=== PATIENT | male | born 1960 | race Caucasian/White ===

== ENCOUNTER 2016-08-30 18:28 | Emergency (ER) | payer OTHER ==
[~2016-08-30] VITALS: Ht 177.8 cm; Wt 88.9 kg
[~2016-08-30 18:28] MED LIST: BACTRIM DS 8001 TAB PO; BACTROBAN22 GM TOP; BUSPIRONE HCL5 M1 PO; ESCITALOPRAM10 MG PO; FOLIC ACID1 M1 PO; GABAPENTIN300 MG PO; KEFLEX500 MG PO; PRAVASTATIN40 MG PO; TYLENOL500 MG PO; Theragran Vitamins PO; VITAMIN B-1100 MG PO
--- NOTE | 2016-08-30 19:03 | ED PSYCHIATRIC COMPLAINT ---
History of Present Illness General Chief Complaint: ETOH/Drug Related Complaint Stated Complaint: ETOH Source: patient Exam Limitations: intoxication Vital Signs & Intake/Output Vital Signs & Intake/Output Vital Signs Date Time Temp Pulse Resp B/P B/P Pulse O2 O2 Flow FiO2 Mean Ox Delivery Rate 08/31 0838 98.2 98 20 138/77 95 Room Air 08/31 0638 99.0 88 16 121/71 08/31 0625 99.0 88 16 121/71 95 08/31 0440 98.0 87 18 105/59 08/31 0436 98.0 87 18 105/59 95 Room Air 08/31 0240 98.0 77 17 120/76 08/31 0240 98.0 77 17 120/76 95 Room Air 08/31 0040 98.1 74 16 111/63 08/31 0040 98.1 74 16 111/63 94 Room Air 08/30 2240 98.0 77 16 102/56 94 Room Air 08/30 2047 97.8 77 20 114/67 94 Room Air 08/30 1902 98 Room Air 08/30 1833 97.9 83 16 136/80 94 Room Air ED Intake and Output 08/31 0000 08/30 1200 Intake Total Output Total Balance Patient 196 lb Weight Weight Reported by Patient Measurement Method Allergies Coded Allergies: NO KNOWN ALLERGIES (08/11/15) Reconcile Medications Acetaminophen (Tylenol) 500 MG TAB 500 MG PO Q8P PRN PAIN Buspirone HCl 5 MG TABLET 1 TAB PO BID anxiety Escitalopram Oxalate 10 MG TAB 2 TAB PO DAILY MENTAL HEALTH Folic Acid 1 MG TABLET 1 TAB PO DAILY supplement Gabapentin 300 MG CAP 2 TAB PO Q6-PRN PRN ANXIETY Mupirocin (Bactroban) 22 GM OINT...G. 1 YEYO TOP TID Skin infection apply to affected area(s) Pravastatin Sodium (Pravastatin) 40 MG TAB 1 TAB PO QPM CHOLESTEROL (Reported ) [Theragran Vitamins] 1 TAB PO DAILY supplement Thiamine HCl (Vitamin B-1) 100 MG TABLET 1 TAB PO DAILY supplement Triage Note: PT STATES HE HAS BEEN DRINKING FOR THE PAST FEW DAYS. PT ADMITS TO DRINKING ANNABELLA BEEM UNSURE OF AMOUNT. PT STATES HE AND HIS ARE GETTING A DIVORCE. PT WAS SOBER FOR 15 YEARS BUT THE LAST YEAR HE HAS HAD TROUBLE STAYING SOBER. PT DENIES DRUG USE. PT STATES HE IS SUICIDAL DENIES HI Triage Nurses Notes Reviewed? yes HPI: Patient presents for evaluation of alcohol intoxication and suicide ideation. Patient states he was sober for 15 years until he began divorce proceedings with his . Patient states he had a court date yesterday for the divorce. He has been drinking heavily over the past few days. (ISAAK MERA,CHANTALE Alberto) Past History Travel History Traveled to [place] past 21 day No Medical History Any Pertinent Medical History? 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 FATHER, ; Cause: Alcoholism /alcohol abuse. Hx Contributory? No (ISAAK MERA,CHANTALE Alberto) Review of Systems Review of Systems Constitutional: Reports: no symptoms. EENTM: Reports: no symptoms. Respiratory: Reports: no symptoms. Cardiovascular: Reports: no symptoms. GI: Reports: no symptoms. Genitourinary: Reports: no symptoms. Musculoskeletal: Reports: no symptoms. Skin: Reports: no symptoms. Neurological/Psychological: Reports: no symptoms. Hematologic/Endocrine: Reports: no symptoms. Immunologic/Allergic: Reports: no symptoms. All Other Systems: Reviewed and Negative (ISAAK MERA,CHANTALE Alberto) Physical Exam Physical Exam General Appearance: see below Neurological/Psychiatric: see below Comments: Exam limited secondary to the patient's threatening behavior and aggressive demeanor General: Alert, belligerent and threatening, EtOH-like odor Head: Normocephalic, atraumatic Eyes: Normal inspection, no nystagmus, EOMI Ears: Normal inspection Nose: Normal inspection Throat: Moist mucosa Neck: Supple, no goiter Lungs: No apparent respiratory distress Abdomen: Soft nontender nondistended, normal bowel sounds Chest: Nontender Extremities: Normal range of motion grossly, mild tremors present, no cyanosis clubbing or edema of the upper extremities Neurologic: cranial nerves II through XII grossly intact, speech clear, gait normal Psychiatric: No apparent delusions or hallucinations, no pressured speech or thought blocking, prone to agitation and anger SAD PERSONS Done? deferred to crisis (ISAAK MERA,CHANTALE Alberto) Progress Differential Diagnosis: alcohol intoxication, depression Plan of Care: Orders Procedure Date/time Status Regular Diet 08/31 B Active ED CRISIS PSYCH CONSULT 08/31 0925 Active URINE DRUG SCREEN FOR ER ONLY 08/31 0742 Complete Continuous Observation Monitor 08/31 0700 Active Continuous Observation Monitor 08/31 0300 Active Continuous Observation Monitor 08/30 2300 Active ETHANOL 08/30 1956 Complete COMPREHENSIVE METABOLIC PANEL 08/30 1956 Complete CBC WITHOUT DIFFERENTIAL 08/30 1956 Complete Continuous Observation Monitor 08/30 1900 Active Restraint- Behavioral (Order) 08/30 1850 Active Laboratory Tests 08/31/16 0740: Urine Opiates Screen < 100.00, Methadone Screen 51, Barbiturate Screen < 60, Ur Phencyclidine Scrn < 6.00, Amphetamines Screen < 100, U Benzodiazepines Scrn < 85, Urine Cocaine Screen < 50, Urine Cannabis Screen < 5.00 08/30/162035: Anion Gap 19 H, Estimated GFR > 60, BUN/Creatinine Ratio 21.4, Glucose 78, Calcium 8.5, Total Bilirubin 0.8, AST 38, ALT 50, Alkaline Phosphatase 57, Total Protein 7.1, Albumin 4.2, Globulin 2.9, Albumin/Globulin Ratio 1.4, CBC w Diff NO MAN DIFF REQ, RBC 5.19, MCV 88.3, MCH 30.0, RDW 13.6, MPV 7.0 L, Gran % 74.3 , Lymphocytes % 20.9, Monocytes % 3.6, Eosinophils % 0.6, Basophils % 0.6, Absolute Granulocytes 6.5, Absolute Lymphocytes 1.8, Absolute Monocytes 0.3, Absolute Eosinophils 0.1, Absolute Basophils 0.1, PUBS MCHC 33.9, Serum Alcohol 297.0 08/30/161956: Methadone Screen Cancelled, Barbiturate Screen Cancelled, Ur Phencyclidine Scrn Cancelled, Amphetamines Screen Cancelled, U Benzodiazepines Scrn Cancelled, Urine Cocaine Screen Cancelled, Urine Cannabis Screen Cancelled 7:20 AM Patient signed out to me by Dr. Eng. Pending crisis evaluation. 08/31/2016 11:03:30 AM Patient seen and cleared for discharge by Jude from psychiatry. Patient denies ever feeling suicidal and states that he does not remember making the comment. He will follow-up with IOP on Saturday. (CESIA WU MD) Comments: 08/30/2016 7:25:59 PM patient escalated rapidly into an angry confrontation with the security officers as they tried to place him in his room and prepare him for evaluation. He began screaming obscenities and specifically threatened one of the security officers with bodily harm. He would not respond to verbal redirection. At that point he was placed in 4. restraints and medicated with Haldol Ativan and Benadryl. 08/30/2016 7:31:41 PM patient signed out to Dr. Eng. (ISAAK MERA,CHANTALE Alberto) Departure Departure Condition: Stable Clinical Impression Primary Impression: Alcohol intoxication Qualifiers: Complication of substance-induced condition: with unspecified complication Qualified Code: F10.129 - Alcohol abuse with intoxication, unspecified Secondary Impressions: Depression Qualifiers: Depression Type: unspecified Qualified Code: F32.9 - Major depressive disorder, single episode, unspecified Outbursts of anger Poor impulse control Referrals: FAISAL MERA,MARNIE Spencer (PCP/Family) Departure Forms: Customer Survey General Discharge Information (ISAAK MERA,CHANTALE Alberto) Departure Time of Disposition: 3 Disposition: HOME OR SELF CARE Additional Instructions: Follow-up with IOP on Saturday. Return for any changing or worsening symptoms. (CESIA WU MD)
[2016-08-30 20:55] LABS: ABSOLUTE BASOPHIL COUNT 0.1 /CUMM (0.0-0.2); ABSOLUTE EOSINOPHIL COUNT 0.1 /CUMM (0.0-0.7); ABSOLUTE GRANULOCYTE CT 6.5 /CUMM (1.4-6.5); ABSOLUTE LYMPH COUNT 1.8 /CUMM (1.2-3.4); ABSOLUTE MONOCYTE COUNT 0.3 /CUMM (0.10-0.60); BASOPHIL % 0.6 % (0.0-2.0); EOSINOPHIL % 0.6 % (0-5); GRANULOCYTE % 74.3 % (42.2-75.2); HEMATOCRIT 45.9 % (42-52); MEAN CORPUSCULAR HGB CONC 33.9 G/DL (33.0-37.0); MEAN CORPUSCULAR VOLUME 88.3 FL (80.0-94.0); PLATELET COUNT 290 /CUMM (130-400); RBC DISTRIBUTION WIDTH 13.6 % (11.5-14.5); RED BLOOD CELL CT 5.19 /CUMM (4.70-6.10); WHITE BLOOD CELL COUNT 8.8 /CUMM (4.8-10.8)
[2016-08-31 11:16] VITALS: BP 155/87
== END 2016-08-31 11:28 ==
LOC: ERH 18:28
PROVIDERS: Emergency Medicine
DX: F10.129 Alcohol abuse with intoxication, unspecified (principal); F32.9 Major depressive disorder, single episode, unspecified; R45.4 Irritability and anger; R45.87 Impulsiveness
CPT/HCPCS: 80307; 96372; G0463; G0480; J1200; J1630

== ENCOUNTER 2017-09-17 18:07 | Emergency (ER) | payer OTHER ==
[~2017-09-17] VITALS: Ht 175.3 cm; Wt 77.1 kg
[2017-09-17 18:57] LABS: ABSOLUTE BASOPHIL COUNT 0.1 /CUMM (0.0-0.2); ABSOLUTE EOSINOPHIL COUNT 0.1 /CUMM (0.0-0.7); ABSOLUTE GRANULOCYTE CT 7.3 /CUMM (1.4-6.5); ABSOLUTE LYMPH COUNT 3.1 /CUMM (1.2-3.4); ABSOLUTE MONOCYTE COUNT 0.7 /CUMM (0.10-0.60); BASOPHIL % 0.6 % (0.0-2.0); EOSINOPHIL % 0.5 % (0-5); GRANULOCYTE % 64.6 % (42.2-75.2); HEMATOCRIT 47.9 % (42-52); MEAN CORPUSCULAR HGB 30.5 PG (27.0-31.0); MEAN CORPUSCULAR HGB CONC 33.7 G/DL (33.0-37.0); MEAN CORPUSCULAR VOLUME 90.6 FL (80.0-94.0); MEAN PLATELET VOLUME 6.7 FL (7.4-10.4); PLATELET COUNT 333 /CUMM (130-400); RBC DISTRIBUTION WIDTH 14.2 % (11.5-14.5); WHITE BLOOD CELL COUNT 11.2 /CUMM (4.8-10.8)
--- NOTE | 2017-09-17 21:19 | ED GENERAL ADULT ---
See Addendum History of Present Illness General Chief Complaint: ETOH/Drug Related Complaint Stated Complaint: PT IS HERE FOR DETOX FOR ALOCHOL Source: patient Exam Limitations: intoxication Vital Signs & Intake/Output Vital Signs & Intake/Output Vital Signs Date Time Temp Pulse Resp B/P B/P Pulse O2 O2 Flow FiO2 Mean Ox Delivery Rate 09/189 98.1 92 18 107/65 98 / 0415 98.1 92 18 107/65 / 0211 97.1 87 18 136/69 / 0203 97.1 87 18 136/69 97 / 2211 97.8 92 18 152/82 / 2211 97.8 92 18 152/82 99 Room Air 09/17 2040 97.8 90 20 134/69 99 Room Air 09/17 2010 97.8 90 20 134/69 / 1827 97.8 96 18 149/79 96 Room Air Room Air 09/17 1811 97.8 96 18 149/79 ED Intake and Output 09/18 0000 09/17 1200 Intake Total Output Total Balance Patient 170 lb Weight Weight Reported by Patient Measurement Method Allergies Coded Allergies: NO KNOWN ALLERGIES (08/11/15) Reconcile Medications Acetaminophen (Tylenol) 500 MG TAB 500 MG PO Q8P PRN PAIN Buspirone HCl 5 MG TABLET 1 TAB PO BID anxiety Escitalopram Oxalate 10 MG TAB 2 TAB PO DAILY MENTAL HEALTH Folic Acid 1 MG TABLET 1 TAB PO DAILY supplement Gabapentin 300 MG CAP 2 TAB PO Q6-PRN PRN ANXIETY Mupirocin (Bactroban) 22 GM OINT...G. 1 YEYO TOP TID Skin infection apply to affected area(s) Pravastatin Sodium (Pravastatin) 40 MG TAB 1 TAB PO QPM CHOLESTEROL (Reported ) [Theragran Vitamins] 1 TAB PO DAILY supplement Thiamine HCl (Vitamin B-1) 100 MG TABLET 1 TAB PO DAILY supplement Triage Note: PT TO ED WITH FRIEND "HE HAS BEEN DRINKING SINCE LAST SATURDAY DRINKING AND HE WAS CLEAN FOR A YEAR". PT STATING "I NEED HELP". Triage Nurses Notes Reviewed? yes Onset: Abrupt Duration: week(s): (1), constant, continues in ED Timing: single episode today Injury Environment: home Severity: moderate, severe No Modifying Factors: none HPI: 57-year-old male past medical history of alcohol abuse presents for evaluation requesting alcohol detox. Patient states that he was previously clean for a year until one week ago he started drinking again. He states that he should drink every day for the past week. He does report in the past he has had alcohol withdrawal seizures but not for several years. Denies any drug use no suicidal or homicidal ideation. Patient states he drinks about 12 beers and a pint of hard liquor daily. No chest pain shortness of breath nausea vomiting or diarrhea. No other associated symptoms. His last drink was prior to arrival. (Moe Lazaro) Past History Travel History Traveled to [place] past [place] day No Medical History Any Pertinent Medical History? 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 FATHER, ; Cause: Alcoholism /alcohol abuse. Hx Contributory? No (Moe Lazaro) Review of Systems Review of Systems Constitutional: Reports: no symptoms. EENTM: Reports: no symptoms. Respiratory: Reports: no symptoms. Cardiovascular: Reports: no symptoms. GI: Reports: no symptoms. Genitourinary: Reports: no symptoms. Musculoskeletal: Reports: no symptoms. Skin: Reports: no symptoms. Neurological/Psychological: Reports: no symptoms. Hematologic/Endocrine: Reports: no symptoms. Immunologic/Allergic: Reports: no symptoms. All Other Systems: Reviewed and Negative (Moe Lazaro) Physical Exam Physical Exam General Appearance: well developed/nourished, no apparent distress, alert, awake Head: atraumatic, normal appearance Eyes: Bilateral: normal appearance, PERRL, EOMI. Ears, Nose, Throat: normal pharynx, normal ENT inspection, hearing grossly normal Neck: normal inspection, supple, full range of motion Respiratory: normal breath sounds, chest non-tender, no respiratory distress, lungs clear Cardiovascular: regular rate/rhythm, normal peripheral pulses Peripheral Pulses: 2+ radial (R), 2+ radial (L) Gastrointestinal: soft, non-tender Back: normal inspection, normal range of motion Extremities: normal inspection, normal capillary refill, normal range of motion, no edema Neurologic/Psych: no motor/sensory deficits, awake, alert, oriented x 3, normal gait Skin: intact, normal color, warm/dry Lymphatic: no anterior cervical mai Core Measures ACS in differential dx? No CVA/TIA Diagnosis: No Sepsis Present: No Sepsis Focused Exam Completed? No (Darrel SWEENEY,Moe) Progress Differential Diagnoses I considered the following diagnoses in my evaluation of the patient: [Alcohol intoxication, alcohol withdrawal,] Plan of Care: Orders Procedure Date/time Status Regular Diet 09/18 B Active Add-on Test (ER Only) 09/17 1928 Active DIRECT BILIRUBIN 09/17 1825 Complete CIWA 09/17 1810 Active URINE DRUG SCREEN FOR ER ONLY 09/17 1810 Complete URINALYSIS 09/17 1810 Complete MAGNESIUM 09/17 1810 Complete ETHANOL 09/17 1810 Complete COMPREHENSIVE METABOLIC PANEL 09/17 1810 Complete CBC WITHOUT DIFFERENTIAL 09/17 1810 Complete Laboratory Tests 09/17/17 2111: Urine Opiates Screen < 100, Methadone Screen < 40, Barbiturate Screen < 60, Ur Phencyclidine Scrn < 6.00, Amphetamines Screen < 100, U Benzodiazepines Scrn < 85, Urine Cocaine Screen < 50, Urine Cannabis Screen > 80.00 H, Urine Color YEL , Urine Clarity CLEAR, Urine pH 6.0, Ur Specific [place] <= 1.005, Urine Protein NEG, Urine Ketones NEG, Urine Nitrite NEG, Urine Bilirubin NEG, Urine Urobilinogen 0.2, Ur Leukocyte Esterase NEG, Ur Microscopic SEDIMENT EXAMINED, Urine RBC RARE, Ur Epithelial Cells RARE, Urine Mucus RARE, Urine Hemoglobin TRACE-INTACT H, Urine Glucose NEG 09/17/171825: Anion Gap 21 H, Estimated GFR > 60, BUN/Creatinine Ratio 15.7, Glucose 83, Calcium 9.0, Magnesium 2.1, Total Bilirubin 2.2 H, Direct Bilirubin 0.3, AST 79 H, ALT 63, Alkaline Phosphatase 98, Total Protein 7.9, Albumin 4.8, Globulin 3.1, Albumin/Globulin Ratio 1.5, CBC w Diff NO MAN DIFF REQ, RBC 5.30, MCV 90.6, MCH 30.5, MCHC 33.7, RDW 14.2, MPV 6.7 L, Gran % 64.6, Lymphocytes % 27.7, Monocytes % 6.6, Eosinophils % 0.5, Basophils % 0.6, Absolute Granulocytes 7.3 H, Absolute Lymphocytes 3.1, Absolute Monocytes 0.7 H, Absolute Eosinophils 0.1 , Absolute Basophils 0.1, Serum Alcohol > 300.0 Patient seen and evaluated. He is here requesting alcohol detox. Currently he is very intoxicated. He does have a remote history of alcohol withdrawal seizures. No chest pain shortness breath or any other associated symptoms. He denies suicidal or homicidal ideation. Initial CIWA 0. Alcohol levels greater than 300. Patient will be held the emergency department for further evaluation. Patient status to Dr. Sutton pending repeat evaluations/ ciwa. 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 The patient does not appear to be experiencing significant signs of alcohol withdrawal and I feel he can be treated as an outpatient according to the [facility] emergency medicine alcohol detoxification protocol. (Lesley MERA,Dieter Rose) Departure Departure Disposition: HOME OR SELF CARE Condition: Stable Clinical Impression Primary Impression: Alcohol intoxication Qualifiers: Complication of substance-induced condition: uncomplicated Qualified Code: F10.920 - Alcohol use, unspecified with intoxication, uncomplicated Referrals: Keven Ryan MD (PCP/Family) Departure Forms: Customer Survey General Discharge Information (Moe Lazaro) Departure Additional Instructions: Ativan as prescribed. Follow-up with an outpatient detoxification program as soon as possible. Notify your primary care physician of this emergency department visit and treatment plan. Return if any concerns or sudden worsening. Prescriptions: Current Visit Scripts LORazepam (Ativan) 1 TAB PO TID #16 TAB DAY 1: 2 TAB 3X/DAY DAY 2: 1 TAB 4X/DAY DAY 3: 1 TAB 3X/DAY DAY 4: 1 TAB 2X/DAY DAY 5: 1 TAB (Dieter Sutton MD) Critical Care Note Critical Care Note Critical Care Time: non-applicable (Moe Lazaro)
[2017-09-18] MEDS ORDERED: ATIVAN1 M1 PO (06:17)
[2017-09-18 06:34] VITALS: BP 140/85
== END 2017-09-18 08:25 ==
LOC: ERH 18:07
PROVIDERS: Physician Assistant Medical
DX: F10.129 Alcohol abuse with intoxication, unspecified (principal)
CPT/HCPCS: 80307; 81001; G0480

== ENCOUNTER 2017-09-21 15:05 | Emergency (ER) | payer OTHER ==
[~2017-09-21] VITALS: Ht 177.8 cm; Wt 77.1 kg
[~2017-09-21 15:05] MED LIST changes: +ATIVAN1 M1 PO
--- NOTE | 2017-09-21 15:45 | ED PSYCHIATRIC COMPLAINT ---
History of Present Illness General Chief Complaint: ETOH/Drug Related Complaint Stated Complaint: REQUESTING ETOH DETOX Source: patient, family, friend Exam Limitations: intoxication Allergies Coded Allergies: NO KNOWN ALLERGIES (08/11/15) Reconcile Medications Acetaminophen (Tylenol) 500 MG TAB 500 MG PO Q8P PRN PAIN Buspirone HCl 5 MG TABLET 1 TAB PO BID anxiety Chlordiazepoxide HCl 25 MG CAPSULE 1 CAP PO TID PRN ALCOHOL WITHDRAWAL day 1: 2 tab 3x/day day 2: 1 tab 4x/day day 3: 1 tab 3x/day day 4: 1 tab 2x/day day 5: 1 tab Escitalopram Oxalate 10 MG TAB 2 TAB PO DAILY MENTAL HEALTH Folic Acid 1 MG TABLET 1 TAB PO DAILY supplement Gabapentin 300 MG CAP 2 TAB PO Q6-PRN PRN ANXIETY LORazepam (Ativan) 1 MG TAB 1 TAB PO TID ALCHOHOL WITHDRAWAL DAY 1: 2 TAB 3X/DAY DAY 2: 1 TAB 4X/DAY DAY 3: 1 TAB 3X/DAY DAY 4: 1 TAB 2X/DAY DAY 5: 1 TAB Mupirocin (Bactroban) 22 GM OINT...G. 1 YEYO TOP TID Skin infection apply to affected area(s) Pravastatin Sodium (Pravastatin) 40 MG TAB 1 TAB PO QPM CHOLESTEROL (Reported ) [Theragran Vitamins] 1 TAB PO DAILY supplement Thiamine HCl (Vitamin B-1) 100 MG TABLET 1 TAB PO DAILY supplement Triage Note: PT TO THE ER REQUESTING DETOX FORM ALCOHOL. PT STATES "IM SCARED IM GONNA KILL MYSELF AND NEVER SEE MY KIDS AGAIN" PT STATES THAT HE GOT SAD THIS AM AND STATES THAT HE WAS NO SI. PT STATES THAT HE NEEDS HELP AND HIS 2 BEST FRIENDS WITH PT IN TRIAGE FOR SUPPORT. PT DRINKS 2 QUARTS VODKA/ANNABELLA BEAM PLUS BEER. PT LAST DRINK WAS 20 MIN AGO. Triage Nurses Notes Reviewed? yes Onset: Afternoon Duration: day(s): Timing: recent history HPI: 57-year-old male comes into the emergency room for alcohol intoxication and suicidal thoughts. He is brought in by 2 members that are part of his AA 12- step program. He has relapsed. He's been drinking heavy amounts of alcohol. History of alcohol withdrawal. He was making suicidal comments to the people on his AA. They brought him in here. No history of any other drug use and he reports. (Tin Pastrana) Vital Signs & Intake/Output Vital Signs & Intake/Output Vital Signs Date Time Temp Pulse Resp B/P B/P Pulse O2 O2 Flow FiO2 Mean Ox Delivery Rate 09/22 1129 98.4 98 18 138/92 98 Room Air Room Air 09/22 1008 98.1 113 18 148/86 09/22 0850 98.1 113 18 148/86 95 Room Air Room Air 09/22 0802 98.3 98 18 144/87 09/22 0704 98.8 102 18 115/77 98 Room Air 09/22 0700 98.8 102 18 115/77 09/22 0500 97.8 94 18 112/66 09/22 0500 97.8 94 18 112/66 96 09/22 0305 97.2 90 18 110/62 09/22 0305 97.2 90 18 110/62 94 09/22 0021 98.3 98 18 108/60 09/22 0021 98.3 98 18 108/60 95 Room Air 09/21 2100 98.4 101 18 113/56 09/21 2100 98.4 101 18 113/56 94 Room Air 09/21 1817 99.0 102 20 122/72 93 Room Air 09/21 1537 97.5 116 16 154/83 98 Room Air ED Intake and Output 09/22 0000 09/21 1200 Intake Total 0 Output Total 0 Balance 0 Intake, Oral 0 Output, Urine 0 Patient 170 lb Weight Weight Reported by Patient Measurement Method (Devang Eng MD) Past History Travel History Traveled to [place] past 21 day No Medical History Any Pertinent Medical History? 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 FATHER, ; Cause: Alcoholism /alcohol abuse. Hx Contributory? No (Tin Pastrana) Review of Systems Review of Systems Constitutional: Reports: no symptoms. EENTM: Reports: no symptoms. Respiratory: Reports: no symptoms. Cardiovascular: Reports: no symptoms. GI: Reports: no symptoms. Genitourinary: Reports: no symptoms. Musculoskeletal: Reports: no symptoms. Skin: Reports: no symptoms. Neurological/Psychological: Reports: see HPI. Hematologic/Endocrine: Reports: no symptoms. Immunologic/Allergic: Reports: no symptoms. All Other Systems: Reviewed and Negative (Tin Pastrana) Physical Exam Physical Exam General Appearance: well developed/nourished, mild distress Head: atraumatic Eyes: Bilateral: normal appearance. Ears, Nose, Throat: normal ENT inspection, hearing grossly normal Neck: normal inspection Respiratory: no respiratory distress Cardiovascular: regular rate/rhythm Extremities: normal range of motion Neurological/Psychiatric: awake, agitated Behavoir/Eye Contact/Speech: cooperative Thoughts/Hallucinations: no apparent hallucination Skin: intact, normal color, warm/dry SAD PERSONS Done? unobtained due to conditi (Tin Pastrana) Progress Differential Diagnosis: dementia, drug intoxication, drug overdose, drug withdrawal, electrolyte abnormality Hand-Off Endorsed To: Devang Eng MD Endorsed Time: 2027 Pending: consult (crisis) (Tin Pastrana) Plan of Care: Orders Procedure Date/time Status Continuous Observation Monitor 09/21 1635 Active CIWA 09/21 1635 Active ED CRISIS PSYCH CONSULT 09/21 1635 Active ETHANOL 09/21 1545 Complete COMPREHENSIVE METABOLIC PANEL 09/21 1545 Complete CBC WITHOUT DIFFERENTIAL 09/21 1545 Complete URINE DRUG SCREEN FOR ER ONLY 09/21 1520 Complete Laboratory Tests 09/21/17 1610: Anion Gap 20 H, Estimated GFR > 60, BUN/Creatinine Ratio 17.1, Glucose 119 H, Calcium 8.7, Total Bilirubin 1.4 H, AST 115 H, ALT 82 H, Alkaline Phosphatase 77, Total Protein 7.8, Albumin 4.5, Globulin 3.3, Albumin/Globulin Ratio 1.4, CBC w Diff NO MAN DIFF REQ, RBC 5.34, MCV 91.4, MCH 30.0, MCHC 32.8 L, RDW 13.9 , MPV 6.6 L, Gran % 69.9, Lymphocytes % 21.5, Monocytes % 6.4, Eosinophils % 0.8, Basophils % 1.4, Absolute Granulocytes 9.1 H, Absolute Lymphocytes 2.8, Absolute Monocytes 0.8 H, Absolute Eosinophils 0.1, Absolute Basophils 0.2, Serum Alcohol 358.0 09/21/17 1521: Urine Opiates Screen < 100, Methadone Screen < 40, Barbiturate Screen < 60, Ur Phencyclidine Scrn < 6.00, Amphetamines Screen < 100, U Benzodiazepines Scrn < 85, Urine Cocaine Screen < 50, Urine Cannabis Screen 49.30 Hand-Off Endorsed To: Lesley MERA,Dieter Rose Endorsed Time: 0700 Pending: consult (crisis, CIWA) (Albertina MERA,Devang) Comments: 09/22/2017 7:32:25 AM patient signed out to me by Dr. 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 09/22/2017 11:50:37 AM patient has been evaluated by the intake clinician and felt to be stable for outpatient management. (Lesley MERA,Dieter Rose) Departure Departure Disposition: STILL A PATIENT Condition: Stable Clinical Impression Primary Impression: Suicidal ideation Secondary Impressions: ETOH abuse Referrals: Connor MERA,Keven Spencer (PCP/Family) Departure Forms: Customer Survey General Discharge Information (Peter SWEENEY,Tin) Departure Additional Instructions: Please follow up with IOP at 9:30 tomorrow. Librium as prescribed for alcohol withdrawal. Avoid alcohol and drugs. Contact your primary care physician and arrange for follow-up appointment this week for reevaluation. If you do not currently have a primary care physician then please contact the [facility] at the following phone number: . Return if any concerns or sudden worsening. Prescriptions: Current Visit Scripts Chlordiazepoxide HCl 1 CAP PO TID PRN ALCOHOL WITHDRAWAL #16 CAP day 1: 2 tab 3x/day day 2: 1 tab 4x/day day 3: 1 tab 3x/day day 4: 1 tab 2x/day day 5: 1 tab (Dieter Sutton MD)
[2017-09-21 16:18] LABS: ABSOLUTE BASOPHIL COUNT 0.2 /CUMM (0.0-0.2); ABSOLUTE EOSINOPHIL COUNT 0.1 /CUMM (0.0-0.7); ABSOLUTE GRANULOCYTE CT 9.1 /CUMM (1.4-6.5); ABSOLUTE LYMPH COUNT 2.8 /CUMM (1.2-3.4); ABSOLUTE MONOCYTE COUNT 0.8 /CUMM (0.10-0.60); BASOPHIL % 1.4 % (0.0-2.0); EOSINOPHIL % 0.8 % (0-5); GRANULOCYTE % 69.9 % (42.2-75.2); HEMATOCRIT 48.8 % (42-52); MEAN CORPUSCULAR HGB CONC 32.8 G/DL (33.0-37.0); MEAN CORPUSCULAR VOLUME 91.4 FL (80.0-94.0); MEAN PLATELET VOLUME 6.6 FL (7.4-10.4); PLATELET COUNT 314 /CUMM (130-400); RBC DISTRIBUTION WIDTH 13.9 % (11.5-14.5); RED BLOOD CELL CT 5.34 /CUMM (4.70-6.10); WHITE BLOOD CELL COUNT 13.1 /CUMM (4.8-10.8)
--- NOTE | 2017-09-22 10:54 | ED PSYCH CRISIS CONSULTATION ---
Crisis Consult Basic Assessment Date of Consult: 09/22/17 Responsible Person/Accompanied By: self Insurance Authorization: Insurance #1: Insurance name: STEFAN OLIVAS Phone number: Policy number: [id number] Group number: Authorization number: ED Provider: Patient's ED Provider: Dieter Sutton MD Primary Care Physician: Patient's PCP: Keven Ryan MD PCP's Current Psychiatrist: none Chief Complaint: ETOH/Drug Related Complaint Patient's Quote: I'm never going to kill myself. Friends told me to sya that. Present Illness: Pt is a 57 yo male brought in to [facility] ED yesterday by AA friends making a 12 step intervention due to pt recent relapse and SI. This is pt 2nd ED visit past week for etoh detox. He was discharged last Sat with an Ativan taper but pt reports he resumed drinking that evening. Pt denies SI. Pt states "I'm never going to kill myself". I have my two kids and I'm too much of a coward". Pt states is friends told him to say that so he would have to be admitted. Pt reports no prior SI; no hx of attempts and no psychiatric tx hx. Pt denies HI;AH and VH. Pt reports he is an alcoholic and relapsed last week after 1 yr sobriety. Pt reports he was triggered by a conversation with his ex- (they have been 1 yr) where she was clear that they had no chance to resume their relationship. He reports they are on generally good terms and he has 2 children age 7 and 10 that he sees every Sat and Saturday and every other Sat. 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 Pt reports he first got into recovery after a stay in 2001 at [facility] and stayed sober for 12 yrs until relapse in 2014. he reports medical detoxes at [facility] in 2014 and 2015 and a 45 day rehab in 2014 in [place]. Pt reports no hx of outpatient services but he attends and has a spoortive group of friends. Pt presents as calm, cooperative and OX3. Pt reports ambivalence regarding need for detox. Current CIWA score doesn't support medical admission. Pt reports concern about missing too much time from his [employer] as it is now the "busy time of the year". Pt reports interest in [facility] level of care. Case reviewed with Dr Jang. Recommendation for pt to attend [facility] at [facility] with intake tomorrow (09/23) at 9:30am and provide pt with a script for a Librium taper. Reviewed recommendation with pt and he is in agreement with plan to attend IOP appt tomorrow. Pt will be picked up by friend for discharge. Patient's Address: [address] [place] [address] Other Phone Number: Who Do You Live With? Patient/Self Family/Informants Interviewed: Collateral provided by AA friend Alxeander . He reports he and another AA friend did a 12 step intervention yesterday due to pts relapse and daily drinking. He reports pt had beers cans all over house and has been acting belligerant. 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 He reports knowing pt from AA meetings. Allergies - Coded Allergies: NO KNOWN ALLERGIES (08/11/15) Current Medications - Scheduled Medications Buspirone HCl 5 MG TABLET 1 TAB PO BID anxiety 30 Days Prescribed by Garland Rojas on 08/17/15 Escitalopram Oxalate 10 MG TAB 2 TAB PO DAILY MENTAL HEALTH #30 TAB Prescribed by Garland Rojas on 08/17/15 Folic Acid 1 MG TABLET 1 TAB PO DAILY supplement 30 Days Prescribed by Garland Rojas on 08/17/15 LORazepam (Ativan) 1 MG TAB 1 TAB PO TID ALCHOHOL WITHDRAWAL #16 TAB Prescribed by Dieter Sutton MD on 09/18/17 Mupirocin (Bactroban) 22 GM OINT...G. 1 YEYO TOP TID Skin infection 7 Days Prescribed by Garland Rojas on 08/17/15 Pravastatin Sodium (Pravastatin) 40 MG TAB 1 TAB PO QPM CHOLESTEROL #30 ( Reported) Entered as Reported by Amanda Stephen on 01/27/151958 [Theragran Vitamins] 1 TAB PO DAILY supplement 30 Days Prescribed by Stuart Garcia on 01/31/15 Thiamine HCl (Vitamin B-1) 100 MG TABLET 1 TAB PO DAILY supplement 30 Days Prescribed by Garland Rojas on 08/17/15 Scheduled PRN Medications Acetaminophen (Tylenol) 500 MG TAB 500 MG PO Q8P PRN PAIN 30 Days Prescribed by Ozzy Miner MD on 02/02/15 Chlordiazepoxide HCl 25 MG CAPSULE 1 CAP PO TID PRN ALCOHOL WITHDRAWAL #16 CAP Prescribed by Dieter Sutton MD on 09/22/17 Gabapentin 300 MG CAP 2 TAB PO Q6-PRN PRN ANXIETY 30 Days Prescribed by Garland Rojas on 08/17/15 Laboratory Results: Laboratory Tests 09/21/17 1610: Anion Gap 20 H, Estimated GFR > 60, BUN/Creatinine Ratio 17.1, Glucose 119 H, Calcium 8.7, Total Bilirubin 1.4 H, AST 115 H, ALT 82 H, Alkaline Phosphatase 77, Total Protein 7.8, Albumin 4.5, Globulin 3.3, Albumin/Globulin Ratio 1.4, CBC w Diff NO MAN DIFF REQ, RBC 5.34, MCV 91.4, MCH 30.0, MCHC 32.8 L, RDW 13.9 , MPV 6.6 L, Gran % 69.9, Lymphocytes % 21.5, Monocytes % 6.4, Eosinophils % 0.8, Basophils % 1.4, Absolute Granulocytes 9.1 H, Absolute Lymphocytes 2.8, Absolute Monocytes 0.8 H, Absolute Eosinophils 0.1, Absolute Basophils 0.2, Serum Alcohol 358.0 09/21/17 1521: Urine Opiates Screen < 100, Methadone Screen < 40, Barbiturate Screen < 60, Ur Phencyclidine Scrn < 6.00, Amphetamines Screen < 100, U Benzodiazepines Scrn < 85, Urine Cocaine Screen < 50, Urine Cannabis Screen 49.30 Past History Past Medical History Neurological: NONE EENT: NONE Cardiovascular: NONE Respiratory: NONE Gastrointestinal: NONE Hepatic: NONE Renal: NONE Musculoskeletal: NONE Psychiatric: alcohol dependence, anxiety, opioid dependence Endocrine: NONE Blood Disorders: NONE Cancer(s): NONE ONCOLOGY REP/Reproductive: NONE Past Surgical History Surgical History: 1 Psychosocial History Strengths/Capabilities: motivated to get and stay sober for his children (age 9 and 7). Restarting his [employer] Psychiatric Treatment History Psych Treatment Psychiatric Treatment No Inpatient Treatment No Outpatient Treatment No Substance Use/Abuse History Drug Use/Abuse Substances Used/Abused Yes Substance Used/Abused Alcohol Last Used yesterday How much used/taken 3 half pints vodka and some beers How often daily past week For how long past week. Previously sober 1 yr Substance Abuse Treatment Substance Abuse Treatment Past Substance Abuse [place] Yes Inpatient Treatment Yes Outpatient Treatment No Location of Treatment [facility]; [facility]; [facility] 2014 and 2015 Reason for Treatment ETOH Response to Treatment pt reports sober 12 yrs relapse 2014 and sober 1 yr prior to relapse past week Comments: Pt reports relapse last week after 1 yr sober. Pt has had long periods of sobriety mixed with relapses over past 15 yrs. Pt with past hx of benzo and opiate use but not recent Current Mental Status Mental Status Orientation: Person, Place, Situation Affect: WNL Speech: WNL Neuro-vegetative: WNL Appearance Appearance- Dress/Hygiene: Pt in hospital scrubs; abrasion on nose and elbows. Disheveled. Pt not sure where he received them-possibly yesterday when intoxicated and agitatged. Pt presents as calm; rational and cooperative. Behaviors Thought Process: WNL Thought Content: WNL Memory: WNL Insight: Fair SI/HI Risk Assessment Past Suicidal Ideation/Attempts No Current Suicidal Ideation/Att No Past Homicidal Ideation/Att: No Current Homicidal Ideation/Attempts No Degree of Intent: Thoughts/No Intent Gravely Disabled: Poor Judgment Risk Factors: SA/MH hospitalized, substance abuse, lives alone, male, limited support Lethality Ratin PTSD Checklist PTSD Done? patient declined ED Management Sitter: Yes Restraints: No DSM5/PS Stressors/Medical Prob Diagnosis' (DSM 5, Stressors, Medical): Alcohol Use D/O F10.20 Unspecified Depression F32.9 divorce financial/work stress Current GAF: 40 Comments: pt reports relapse pat wk triggered by conversation with ex- that they had no chance to get back together. Departure Disposition Psych Medical Clearance Date: 09/22/17 Medically Cleared at: 1015 Time Started: 1015 Time Ended: 1100 Date Disposition Established: 09/22/17 Time Disposition Established: 1130 Plan for Disposition - Modality: IOP Facility: [facility] Follow-up Appt Date: 09/23/17 Follow-Up Appt Time: 929 Rationale for Disposition: Pt requesting support/outpatient tx to stop etoh use. Pt reports difficulty with divorce and work triggered recent relapse. Referrals Connor MERA,Keven Spencer (PCP/Family)
[2017-09-22 11:29] VITALS: BP 138/92
[2017-09-22] MEDS ORDERED: CHLORDIAZEPOXID25 M3 PO (12:15)
== END 2017-09-22 12:19 ==
LOC: ERH 15:05
PROVIDERS: Physician Assistant Medical
DX: R45.851 Suicidal ideations (principal); F10.10 Alcohol abuse, uncomplicated; F11.20 Opioid dependence, uncomplicated
CPT/HCPCS: 80307; 96372; G0463; G0480; J1200; J1630

== ENCOUNTER 2017-11-17 20:51 | Emergency (ER) | payer OTHER ==
[~2017-11-17] VITALS: Ht 175.3 cm; Wt 74.8 kg
[~2017-11-17 20:51] MED LIST changes: +CHLORDIAZEPOXID25 M3 PO
[2017-11-17 21:41] LABS: ABSOLUTE BASOPHIL COUNT 0.1 /CUMM (0.0-0.2); ABSOLUTE EOSINOPHIL COUNT 0.2 /CUMM (0.0-0.7); ABSOLUTE GRANULOCYTE CT 3.8 /CUMM (1.4-6.5); ABSOLUTE LYMPH COUNT 2.7 /CUMM (1.2-3.4); ABSOLUTE MONOCYTE COUNT 0.8 /CUMM (0.10-0.60); BASOPHIL % 0.7 % (0.0-2.0); EOSINOPHIL % 2.3 % (0-5); GRANULOCYTE % 51.1 % (42.2-75.2); HEMATOCRIT 45.4 % (42-52); MEAN CORPUSCULAR HGB CONC 33.5 G/DL (33.0-37.0); MEAN CORPUSCULAR VOLUME 92.3 FL (80.0-94.0); MEAN PLATELET VOLUME 6.3 FL (7.4-10.4); PLATELET COUNT 378 /CUMM (130-400); RBC DISTRIBUTION WIDTH 16.2 % (11.5-14.5); RED BLOOD CELL CT 4.92 /CUMM (4.70-6.10); WHITE BLOOD CELL COUNT 7.5 /CUMM (4.8-10.8)
--- NOTE | 2017-11-18 00:05 | ED GENERAL ADULT ---
History of Present Illness General Chief Complaint: ETOH/Drug Related Complaint Stated Complaint: BIBA ETOH DETOX Source: patient Exam Limitations: no limitations Vital Signs & Intake/Output Vital Signs & Intake/Output Vital Signs Date Time Temp Pulse Resp B/P B/P Pulse O2 O2 Flow FiO2 Mean Ox Delivery Rate 11/18 1151 98.2 89 20 113/85 99 Room Air 07/ 0931 98.5 88 20 103/54 07/09 0900 97.0 82 18 118/68 07/09 0900 97.0 82 18 118/68 98 Room Air Room Air 07/09 0718 98.5 88 20 103/54 95 Room Air 07/ 0708 98.6 86 18 121/67 07/09 0646 98.3 86 18 121/67 96 Room Air / 0330 98.1 91 18 137/63 07/09 0325 98.1 91 18 137/63 95 Room Air /08 2325 102 18 135/65 07/08 2311 98.6 102 18 135/65 97 Room Air 11/17 2056 97.6 113 18 141/79 98 Room Air ED Intake and Output 11/18 0000 11/17 1200 Intake Total Output Total Balance Patient 165 lb Weight Allergies Coded Allergies: NO KNOWN ALLERGIES (08/11/15) Triage Note: PT BIBA FROM HOME REQUESTING ETOH DETOX. STATES WAS "DRINKING TOO MUCH." DENIES SI/HI/ ILLICIT DRUG USE. PT FIXED ON IDEA THAT HE DOES NOT WANT ANYONE TO TOUCH HIM "OR THERE WILL BE PROBLEMS." SECURITY IN TRIAGE ROOM. DENIES W/D SEIZURES. Triage Nurses Notes Reviewed? yes Onset: Abrupt Duration: day(s): (1), constant, continues in ED, getting worse Timing: single episode today Injury Environment: home Severity: moderate, severe No Modifying Factors: none HPI: 57 Y/O MALE history of alcohol dependence presents requesting evaluation for occult detox. Patient reports he has been jerking heavily for years but this current episode started 2 weeks ago. Previous to this he had been sober for 6 months. He reports he drinks about 30 beers daily. He denies a history of withdrawal seizures. She denies suicidal or homicidal ideation. No illicit drug use. No hallucinations. Does not take any medications. His last drink was today he drank about 30 beers throughout the day. (Moe Lazaro) Reconcile Medications No Known Home Medications (Hipona MD,Devang) Past History Travel History Traveled to [place] past 21 day No Medical History Any Pertinent Medical History? 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 FATHER, ; Cause: Alcoholism /alcohol abuse. Hx Contributory? No (Moe Lazaro) Review of Systems Review of Systems Constitutional: Reports: no symptoms. EENTM: Reports: no symptoms. Respiratory: Reports: no symptoms. Cardiovascular: Reports: no symptoms. GI: Reports: no symptoms. Genitourinary: Reports: no symptoms. Musculoskeletal: Reports: no symptoms. Skin: Reports: no symptoms. Neurological/Psychological: Reports: no symptoms. Hematologic/Endocrine: Reports: no symptoms. Immunologic/Allergic: Reports: no symptoms. All Other Systems: Reviewed and Negative (Moe Lazaro) Physical Exam Physical Exam General Appearance: well developed/nourished, no apparent distress, alert, awake Head: atraumatic, normal appearance Eyes: Bilateral: normal appearance, PERRL, EOMI. Ears, Nose, Throat: hearing grossly normal Neck: normal inspection, supple, full range of motion Respiratory: normal breath sounds, chest non-tender, no respiratory distress, lungs clear Cardiovascular: regular rate/rhythm, normal peripheral pulses Peripheral Pulses: 2+ radial (R), 2+ radial (L) Gastrointestinal: soft, non-tender Back: normal inspection, normal range of motion, no vertebral tenderness Extremities: normal inspection, normal range of motion, no edema Neurologic/Psych: no motor/sensory deficits, awake, alert, oriented x 3, normal gait, normal mood/affect Skin: intact, normal color, warm/dry Lymphatic: no anterior cervical mai Core Measures ACS in differential dx? No CVA/TIA Diagnosis: No Sepsis Present: No Sepsis Focused Exam Completed? No (Moe Lazaro) Progress Differential Diagnoses I considered the following diagnoses in my evaluation of the patient: [Alcohol intoxication, alcohol withdrawal, drug intoxication, drug withdrawal] Plan of Care: Orders Procedure Date/time Status Regular Diet 11/18 B Active CASE MANAGEMENT CONSULT 11/18 125 Active CIWA 11/17 2257 Active Patient Safety Monitor 11/17 2145 Active URINE DRUG SCREEN FOR ER ONLY 11/17 2054 Complete URINALYSIS 11/17 2054 Complete MAGNESIUM 11/17 2054 Complete ETHANOL 11/17 2054 Complete COMPREHENSIVE METABOLIC PANEL 11/17 2054 Complete CBC WITHOUT DIFFERENTIAL 11/17 2054 Complete Current Medications Sig/Dianna Start time Last Medication Dose Stop Time Status Admin Clonidine 0.1 MG Q8 11/18 921 UNVr 11/18 (Catapres) 930 Gabapentin 300 MG Q8 11/18 921 UNVr 11/18 (Neurontin) 930 Laboratory Tests 11/18/17 0255: Urine Opiates Screen < 100, Methadone Screen < 40, Barbiturate Screen < 60, Ur Phencyclidine Scrn < 6.00, Amphetamines Screen < 100, U Benzodiazepines Scrn < 85, Urine Cocaine Screen < 50, Urine Cannabis Screen < 5.00, Urine Color YEL, Urine Clarity CLEAR, Urine pH 6.0, Ur Specific [place] 1.020, Urine Protein NEG, Urine Ketones NEG, Urine Nitrite NEG, Urine Bilirubin NEG, Urine Urobilinogen 0.2, Ur Leukocyte Esterase NEG, Ur Microscopic EXAM NOT REQUIRED, Urine Hemoglobin NEG, Urine Glucose NEG 11/17/17 2120: Anion Gap 16, Estimated GFR > 60, BUN/Creatinine Ratio 15.6, Glucose 121 H, Calcium 8.6, Magnesium 2.1, Total Bilirubin 0.5, AST 39, ALT 37, Alkaline Phosphatase 83, Total Protein 7.7, Albumin 4.4, Globulin 3.3, Albumin/Globulin Ratio 1.3, CBC w Diff NO MAN DIFF REQ, RBC 4.92, MCV 92.3, MCH 31.0, MCHC 33.5, RDW 16.2 H, MPV 6.3 L, Gran % 51.1, Lymphocytes % 35.7, Monocytes % 10.2 H, Eosinophils % 2.3, Basophils % 0.7, Absolute Granulocytes 3.8, Absolute Lymphocytes 2.7, Absolute Monocytes 0.8 H, Absolute Eosinophils 0.2, Absolute Basophils 0.1, Serum Alcohol 332.0 Patient is here requesting evaluation for alcohol detox. He is not suicidal or homicidal. No history of withdrawal seizures. Currently he is very intoxicated. Alcohol level is 332. Labs ordered patient will be monitored. Remaining blood work is within normal limits. Patient is resting comfortably. Patient signout to Dr. Adhikari pending CIWA Initial ED EKG: none Hand-Off Endorsed To: Ric Adhikari MD Endorsed Time: 57 Pending: other (CIWA) (Moe Lazaro) Comments: Declines waiting further for monitoring of CIWA. (Devang Eng MD) Departure Departure Condition: Stable Clinical Impression Primary Impression: Alcohol intoxication Qualifiers: Complication of substance-induced condition: uncomplicated Qualified Code: F10.920 - Alcohol use, unspecified with intoxication, uncomplicated Referrals: Keven Ryan MD (PCP/Family) Additional Instructions: Follow-up with provided list of detox centers. Monitor symptoms return or any concern (Moe Lazaro) Departure Comments pt to be signed out to dr. eng, 11/18/17, 7am. PA/SPEECH LANGUAGE SPECIALIST Co-Sign Statement Statement: ED Attending supervision documentation- [] I saw and evaluated the patient. I have also reviewed all the pertinent lab results and diagnostic results. I agree with the findings and the plan of care as documented in the PA's/SPEECH LANGUAGE SPECIALIST's documentation. [x] I have reviewed the ED Record and agree with the PA's/SPEECH LANGUAGE SPECIALIST's documentation. [] Additions or exceptions (if any) to the PAs/SPEECH LANGUAGE SPECIALIST's note and plan are summarized below: [] (Zeynep MERA,Ric Pfeiffer) Departure Time of Disposition: 1151 Disposition: HOME OR SELF CARE Departure Forms: DETOX FACILITIES LIST General Discharge Information Prescriptions: Current Visit Scripts Chlordiazepoxide HCl 0 PO SEE ADMIN CRITERIA PRN alcohol withdrawal #40 CAP 1-2 cap QID x 2D, 1-2 cap TID x 2D, 1-2 cap BID x 2D, 1-2 cap QD x2D (Devang Eng MD) Critical Care Note Critical Care Note Critical Care Time: non-applicable (Moe Lazaro)
[2017-11-18 11:51] VITALS: BP 113/85
[2017-11-18] MEDS ORDERED: CHLORDIAZEPOXID25 M3 PO ×2 (11:52→12:02)
== END 2017-11-18 12:15 ==
LOC: ERH 20:51
PROVIDERS: Physician Assistant Medical
DX: F10.129 Alcohol abuse with intoxication, unspecified (principal)
CPT/HCPCS: 80307; 81003; G0480; J3101

== ENCOUNTER 2017-12-01 21:08 | Emergency (ER) | payer OTHER ==
--- NOTE | 2017-12-01 21:13 | ED PSYCHIATRIC COMPLAINT ---
History of Present Illness General Chief Complaint: ETOH/Drug Related Complaint Stated Complaint: BIBA ETOH Source: patient Exam Limitations: intoxication Vital Signs & Intake/Output Vital Signs & Intake/Output Vital Signs Date Time Temp Pulse Resp B/P B/P Pulse O2 O2 Flow FiO2 Mean Ox Delivery Rate 12/02 1001 98.1 99 16 135/96 94 Room Air 12/02 0800 97.9 80 18 108/74 12/02 0800 97.9 80 18 108/74 95 Room Air 12/02 0619 97.9 86 18 107/57 93 Room Air 12/02 0600 97.9 86 18 107/57 12/02 0408 98.2 98 18 121/67 93 Room Air 12/02 0400 98.2 98 18 121/67 12/02 0013 97.9 116 20 143/79 96 Room Air 12/02 0000 97.9 116 20 143/79 12/01 2151 98.3 105 20 109/57 94 Room Air 12/01 2127 Room Air ED Intake and Output 12/02 0000 12/01 1200 Intake Total 0 Output Total Balance 0 Intake, Oral 0 Allergies Coded Allergies: NO KNOWN ALLERGIES (08/11/15) Reconcile Medications Chlordiazepoxide HCl 25 MG CAPSULE 0 PO SEE ADMIN CRITERIA PRN alcohol withdrawal 1-2 cap QID x 2D, 1-2 cap TID x 2D, 1-2 cap BID x 2D, 1-2 cap QD x2D Triage Nurses Notes Reviewed? yes Onset: Gradual Duration: day(s):, waxing and waning Timing: recent history Severity: moderate Associated Symptoms: anxiety HPI: 57 yo gentleman presenting by ambulance seeking detox. Per the medics, "He said that he drank a pint of vodka and 30 beers... he is here for detox." He shares that he has never had a seizure. He denies Si/HI/hallucinations. "I need help... I can't go home or I'll ." He denies injury, chest pain, shortness of breath. (Zeynep MERA,Ric Pfeiffer) Past History Medical History Any Pertinent Medical History? 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 FATHER, ; Cause: Alcoholism /alcohol abuse. Hx Contributory? No (Zeynep MERA,Ric Pfeiffer) Review of Systems Review of Systems Constitutional: Reports: no symptoms. EENTM: Reports: no symptoms. Respiratory: Reports: no symptoms. Cardiovascular: Reports: no symptoms. GI: Reports: no symptoms. Genitourinary: Reports: no symptoms. Musculoskeletal: Reports: no symptoms. Skin: Reports: no symptoms. Neurological/Psychological: Reports: no symptoms. Hematologic/Endocrine: Reports: no symptoms. Immunologic/Allergic: Reports: no symptoms. All Other Systems: Reviewed and Negative (Zeynep MERA,Ric Pfeiffer) Physical Exam Physical Exam General Appearance: well developed/nourished, mild distress Head: atraumatic Eyes: Bilateral: normal appearance. Ears, Nose, Throat: normal pharynx, normal ENT inspection Neck: normal inspection, supple, full range of motion Respiratory: normal breath sounds, chest non-tender, no respiratory distress, quiet respiration, lungs clear Cardiovascular: regular rate/rhythm Neurological/Psychiatric: no motor/sensory deficits, awake, flat Appearance/Memory/Insight: disheveled, impaired insight Behavoir/Eye Contact/Speech: cooperative Thoughts/Hallucinations: no apparent hallucination SAD PERSONS Done? patient not suicidal (Zeynep MERA,Ric Pfeiffer) Progress Differential Diagnosis: alcoholism vs other. Plan of Care: Orders Procedure Date/time Status Regular Diet 12/02 B Active Pathway - chart 12/01 2326 Active CIWA 12/01 2326 Active CASE MANAGEMENT CONSULT 12/01 2326 Active Patient Safety Monitor 12/01 2112 Active URINE DRUG SCREEN FOR ER ONLY 12/01 2112 Complete ETHANOL 12/01 2112 Complete COMPREHENSIVE METABOLIC PANEL 12/01 2112 Complete CBC WITHOUT DIFFERENTIAL 12/01 2112 Complete Current Medications Sig/Dianna Start time Last Medication Dose Stop Time Status Admin Lorazepam 1 MG ONE ONE 12/02 1015 UNVr (Ativan) 12/02 1016 Laboratory Tests 12/01/175: Anion Gap 15, Estimated GFR > 60, BUN/Creatinine Ratio 17.1, Glucose 121 H, Calcium 8.5, Total Bilirubin 0.7, AST 76 H, ALT 47, Alkaline Phosphatase 112, Total Protein 7.3, Albumin 4.1, Globulin 3.2, Albumin/Globulin Ratio 1.3, CBC w Diff NO MAN DIFF REQ, RBC 4.80, MCV 92.7, MCH 31.3 H, MCHC 33.8, RDW 16.5 H, MPV 6.1 L, Gran % 55.4, Lymphocytes % 27.3, Monocytes % 13.2 H, Eosinophils % 2.4, Basophils % 1.7, Absolute Granulocytes 4.7, Absolute Lymphocytes 2.3, Absolute Monocytes 1.1 H, Absolute Eosinophils 0.2, Absolute Basophils 0.1, Serum Alcohol 204.0 12/01/17 2130: Urine Opiates Screen < 100, Methadone Screen < 40, Barbiturate Screen < 60, Ur Phencyclidine Scrn < 6.00, Amphetamines Screen < 100, U Benzodiazepines Scrn > 800 H, Urine Cocaine Screen < 50, Urine Cannabis Screen < 5.00 Hand-Off Endorsed To: Dieter Finney DO Endorsed Time: 0700 Pending: consult (Zeynep MERA,Ric Pfeiffer) Departure Departure Disposition: STILL A PATIENT Condition: Stable Clinical Impression Primary Impression: Alcoholism Referrals: Keven Ryan MD (PCP/Family) Departure Forms: Customer Survey General Discharge Information (Zeynep MERA,Ric Pfeiffer) Departure Comments 12/02/17 The patient was signed out to me by Dr. Adhikari. His CIWA scores have been low. He is requesting help for alcohol withdrawal. He is been drinking straight for 3 weeks. He has been sober for an extended period prior to that. We'll give him an Ativan taper. He was referred to outpatient detox programs. He was also given an antibiotic for the right ear irritation around his right eye. 12/02/17 She denied suicidal ideation. He just wants help for alcohol. (Dieter Finney DO)
[2017-12-01 21:59] LABS: ABSOLUTE BASOPHIL COUNT 0.1 /CUMM (0.0-0.2); ABSOLUTE EOSINOPHIL COUNT 0.2 /CUMM (0.0-0.7); ABSOLUTE GRANULOCYTE CT 4.7 /CUMM (1.4-6.5); ABSOLUTE LYMPH COUNT 2.3 /CUMM (1.2-3.4); ABSOLUTE MONOCYTE COUNT 1.1 /CUMM (0.10-0.60); BASOPHIL % 1.7 % (0.0-2.0); EOSINOPHIL % 2.4 % (0-5); GRANULOCYTE % 55.4 % (42.2-75.2); HEMATOCRIT 44.4 % (42-52); MEAN CORPUSCULAR HGB 31.3 PG (27.0-31.0); MEAN CORPUSCULAR HGB CONC 33.8 G/DL (33.0-37.0); MEAN CORPUSCULAR VOLUME 92.7 FL (80.0-94.0); MEAN PLATELET VOLUME 6.1 FL (7.4-10.4); PLATELET COUNT 415 /CUMM (130-400); RBC DISTRIBUTION WIDTH 16.5 % (11.5-14.5); WHITE BLOOD CELL COUNT 8.4 /CUMM (4.8-10.8)
[2017-12-02 10:01] VITALS: BP 135/96
[2017-12-02] MEDS ORDERED: ATIVAN1 M1 PO (10:18)
== END 2017-12-02 10:35 ==
LOC: ERH 21:08
PROVIDERS: Pediatrics
DX: F10.20 Alcohol dependence, uncomplicated (principal); H93.91 Unspecified disorder of right ear; H57.9 Unspecified disorder of eye and adnexa
CPT/HCPCS: 80307; G0480